=== PATIENT | male | born 1965 | race Caucasian/White ===

== ENCOUNTER 2017-03-27 10:40 | Inpatient (IN) | payer OTHER ==
[2017-03-27 11:07] VITALS: BMI 24.1
--- NOTE | 2017-03-27 14:07 | HP ---
CIWA Score - CIWA Score Nausea/Vomitin-No Nausea/No Vomiting Muscle Tremors: 3 Anxiety: 4-Mod. Anxious/Guarded Agitation: 4-Moderately Restless Paroxysmal Sweats: 1-Minimal Palms Moist Orientation: 0-Oriented Tacttile Disturbances: 3-Moderate Itch/Numb/Burn Auditory Disturbances: 0-None Visual Disturbances: 0-None Headache: 2-Mild CIWA-Ar Total Score: 17 Admission ROS BHS - HPI Chief Complaint: WITHDRAWAL SX FROM ALCOHOL Allergies/Adverse Reactions: Allergies Allergy/AdvReac Type Severity Reaction Status Date / Time No Known Allergies Allergy Verified 03/27/17 12:21 History of Present Illness: 51 Y/O H/MALE WITH A HX OF ALCOHOL DEPENDENCE ON [facility] MMTP, 40 MG PO DAILY SEEKING DETOX TX. LAST DOSED TODAY. Exam Limitations: No Limitations - Ebola screening Have you traveled outside of the country in the last 21 days: No Have you had contact with anyone from an Ebola affected area: No Have you been sick,other than usual withdrawal symptoms: No - Review of Systems Constitutional: Changes in sleep (ON AMBIEN) EENT: reports: Nose Congestion, Dental Problems (MISSING TEETH) Respiratory: reports: Shortness of Breath (HX ASTHMA/COPD), Wheezing Cardiac: reports: Lightheadedness, Chest Tightness (DUE TO ASTHMA) GI: reports: Constipated (OIC), Diarrhea, Nausea : reports: No Symptoms Reported Musculoskeletal: reports: Back Pain, Joint Pain, Muscle Pain, Other (HX RA ARTHRITIS) Integumentary: reports: No Symptoms Reported Neuro: reports: Headache, Dizziness Endocrine: reports: No Symptoms Reported Hematology: reports: No Symptoms Reported Psychiatric: reports: Orientated x3, Anxious, Depressed Other Systems: Reviewed and Negative Patient History - Patient Medical History Hx Asthma: Yes (Pt is on MDI) Hx Chronic Obstructive Pulmonary Disease (COPD): Yes Hx Cardiac Disorders: No Hx Hypertension: No Hx Hypercholesterolemia: No HX Cerebrovascular Accident: No Hx Seizures: No Hx Diabetes: No Hx Gastrointestinal Disorders: No Hx Genitourinary Disorders: No Hx Sexually Transmitted Disorders: No Hx Renal Disease (ESRD): No Hx Human Immunodeficiency Virus (HIV): No (NEGATIVE HX) Hx Hepatitis C: No Hx Depression: Yes Hx Suicide Attempt: No Hx Schizophrenia: No - Patient Surgical History Past Surgical History: No Hx Neurologic Surgery: No Hx Cataract Extraction: No Hx Cardiac Surgery: No Hx Lung Surgery: No Hx Breast Surgery: No Hx Breast Biopsy: No Hx Abdominal Surgery: No Hx Appendectomy: No Hx Cholecystectomy: No Hx Genitourinary Surgery: No Hx Orthopedic Surgery: No Anesthesia Reaction: No - PPD History Previous Implant?: Yes Documented Results: Negative w/o proof Implanted On Prior [facility] Admission?: No PPD to be Administered?: Yes - Reproductive History Patient is a Female of Child Bearing Age (11 -55 yrs old): No (MALE) - Smoking Cessation Smoking history: Former smoker Have you smoked in the past 12 months: No If you are a former smoker, when did you quit?: 2000 Hx Chewing Tobacco Use: No Initiated information on smoking cessation: No - Substance & Tx. History Hx Alcohol Use: Yes (BEER/COGNAC) Hx Substance Use: Yes (HEROIN ON/OFF) Hx Substance Use Treatment: Yes ([facility]) - Substances Abused Alcohol Route: Oral Frequency: Daily Amount used: 1-2 6pks beer/ 1 pint ofcognac Age of first use: 16 Date of Last Use: 03/27/17 Heroin Route: Inhalation Frequency: 1-2 times per week Amount used: 1 bag Age of first use: 16 Date of Last Use: 03/25/17 Family Disease History - Family Disease History Family History: Denies Admission Physical Exam [facility] - Vital Signs Vital Signs: Vital Signs - 24 hr 03/27/17 11:05 Temperature 97.5 F L Pulse Rate 67 Respiratory 18 Rate Blood Pressure 131/85 - Physical General Appearance: Yes: Moderate Distress, Irritable, Anxious HEENTM: Yes: EOMI, Normocephalic, NICOLE, Pharynx Normal Respiratory: Yes: Chest Non-Tender, No Respiratory Distress, Wheezing Neck: Yes: No masses,lesions,Nodules, Supple, Trachea in good position Breast: Yes: Breast Exam Deferred Cardiology: Yes: Regular Rhythm, Regular Rate, S1, S2 Abdominal: Yes: Normal Bowel Sounds, Non Tender, Flat, Soft Genitourinary: Yes: Other (N/C) Back: Yes: Normal Inspection Musculoskeletal: Yes: full range of Motion, Gait Steady Extremities: Yes: Normal Range of Motion, Non-Tender Neurological: Yes: auto design checker II-XII NML intact, Fully Oriented, Alert, Motor Strength 5/5 Integumentary: Yes: Dry, Warm Lymphatic: Yes: Within Normal Limits - Diagnostic (1) Alcohol dependence with uncomplicated withdrawal Current Visit: Yes Status: Acute (2) Methadone maintenance therapy patient Current Visit: Yes Status: Chronic (3) Asthma Current Visit: Yes Status: Acute Qualifiers: Asthma severity: moderate Asthma persistence: unspecified Asthma complication type: with acute exacerbation Qualified Code(s): J45.901 - Unspecified asthma with (acute) exacerbation (4) History of COPD Current Visit: Yes Status: Chronic Cleared for Admission [facility] - Detox or Rehab [facility] Level of Care: Medically Managed Detox Regimen/Protocol: Librium [facility] Breath Alcohol Content Breath Alcohol Content: 0 Urine Drug Screen - Results Drug Screen Negative: No Urine Drug Screen Results: OPI-Opiates, MTD-Methadone, OXY-Oxycodone
[2017-03-27] MEDS ORDERED: MAGNESIUM CITRATE 300 ML BOTTLE PO PRN (14:16)
[2017-03-27] MEDS ORDERED: IBUPROFEN 400 MG TABLET (FP) PO PRN (14:16)
[2017-03-27] MEDS ORDERED: LOPERAMIDE HCL 2 MG CAPSULE PO PRN (14:16)
[2017-03-27] MEDS ORDERED: chlordiazePOXIDE HCL 25 MG CAPSULE PO PRN (14:16)
[2017-03-27] MEDS ORDERED: ACETAMINOPHEN 325 MG TABLET (FP) PO PRN (14:16)
[2017-03-27] MEDS ORDERED: hydrOXYzine PAMOATE 50 MG CAPSULE (FP) PO PRN (14:16)
[2017-03-27] MEDS ORDERED: MAG HYDROX/AL HYDROX/SIMETH 30 ML UNIT-DOSE CUP PO PRN (14:16)
[2017-03-27] MEDS ORDERED: MENTHOL/PHENOL 1 EACH UD MM PRN (14:16)
[2017-03-27] MEDS ORDERED: MAGNESIUM HYDROX 2400MG/30ML ORAL SUSPENSION 30 ML CUP PO PRN (14:16)
[2017-03-27] MEDS ORDERED: P-EPHED 60MG/TRIPROLIDI 2.5MG TABLET PO PRN (14:16)
[2017-03-27] MEDS ORDERED: guaiFENesin/D-METHORPHAN HB 10 ML UNIT-DOSE CUPS PO PRN (14:16)
[2017-03-27] MEDS ORDERED: ALBUTEROL SO4 18 GM HFA INHALER IH PRN (14:18)
[2017-03-27] MEDS ORDERED: ALBUTEROL SO4 2.5/IPRATROPIUM 0.5 INH SOL 3 ML VIAL.NEB. NEB PRN (14:20)
[2017-03-27] MEDS ORDERED: chlordiazePOXIDE HCL 25 MG CAPSULE PO ONE (15:04)
--- NOTE | 2017-03-27 15:13 | CONSULT ---
[facility] Psychiatric Consult - Data Date of interview: 03/27/17 Admission source: [facility] Identifying data: First admission to [facility] for this 51 y/o [place] male seeking detox treatment on for alcohol and heroin dependence.Patent is single without children,domiciled,unemployed and supported on welfare benefits. Substance Abuse History: Confirmed by patient in this session.Refer to current [facility] report for details : Smoking history: Former smoker. Have you smoked in the past 12 months: No. If you are a former smoker, when did you quit?: 2000. Hx Chewing Tobacco Use: No. Initiated information on smoking cessation: No. - Substance & Tx. History. Hx Alcohol Use: Yes (BEER/COGNAC). Hx Substance Use: Yes (HEROIN ON/OFF). Hx Substance Use Treatment: Yes ([facility]). - Substances Abused. Alcohol. Route: Oral. Frequency: Daily. Amount used: 1-2 6pks beer/ 1 pint ofcognac. Age of first use: 16. Date of Last Use: 03/27/17. Heroin. Route: Inhalation. Frequency: 1-2 times per week. Amount used: 1 bag. Age of first use: 16. Date of Last Use: 03/25/17 Medical History: COPD,bronchial asthma and rheumatoid arthritis. Psychiatric History: No reported history of psychiatric hospitalizations.Patient endorses the diagnoses of MDD and Anxiety Disorder.Mr Welch sees a psychiatrist,Dr Margo Giordano,at the [facility] in the [place].Maintained on celexa 20 mg/day + zolpidem 10 mg/hs (confirmed by pharmacy claims of 03/03/17 at [facility]).Currently on methadone meintenece ( 40 mg/day) at the [facility].Patient denies history of suicide attempts. Physical/Sexual Abuse/Trauma History: Patient denies history of abuse. Additional Comment: Urine Drug Screen Results: OPI-Opiates, MTD-Methadone, OXY- Oxycodone.Noted. Mental Status Exam - Mental Status Exam Alert and Oriented to: Time, Place, Person Cognitive Function: Good Patient Appearance: Well Groomed Mood: Hopeful, Euthymic Affect: Appropriate, Normal Range Patient Behavior: Fatigued, Cooperative Speech Pattern: Clear, Appropriate Voice Loudness: Normal Thought Process: Intact, Goal Oriented Thought Disorder: Not Present Hallucinations: Denies Suicidal Ideation: Denies Homicidal Ideation: Denies Insight/Judgement: Fair Sleep: Poorly, Difficulty falling asleep Appetite: Good Muscle strength/Tone: Normal Gait/Station: Normal Psychiatric Findings - Problem List ([place] 1, 2,3) (1) Alcohol dependence with uncomplicated withdrawal Current Visit: Yes Status: Acute (2) Opioid dependence on agonist therapy Current Visit: Yes Status: Acute (3) MDD (major depressive disorder) Current Visit: Yes Status: Chronic Comment: As per self-report.On medications.Connected with psychiatric OPD care at the [facility] in [facility]. (4) Insomnia Current Visit: Yes Status: Acute - Initial Treatment Plan Initial Treatment Plan: Psychoeducation and support provided in this session.Detoxification in progress.Sleep hygiene discussed.Medications resumed : celexa 20 mg po daily + ambien 5 mg po hs prn.Side effects/benefits of both drugs are discussed with the patient.Made aware,in particular,of risk for suicidal ideation,sexual dysfunction and parasomnias (sleep-walking).Patient endorses a history of favorable response to his medications.Consent (verbal) given for implementation of this careplan.Observation.
[2017-03-27] MEDS: chlordiazePOXIDE HCL 25 MG CAPSULE PO SCH ×2 (17:34→22:33)
[2017-03-27] MEDS: ALBUTEROL SO4 2.5/IPRATROPIUM 0.5 INH SOL 3 ML VIAL.NEB. NEB SCH ×2 (17:39→22:34)
[2017-03-27 19:54] LABS: HEMATOCRIT 39.5 % (35.4-49); MCH 29.6 pg (25.7-33.7); MCHC 32.9 g/dl (32.0-35.9); MEAN CELL VOLUME 89.9 fl (80-96); MEAN PLT VOLUME 6.9 fl (7.5-11.1); PLATELET COUNT 267 K/MM3 (134-434); RBC 4.39 M/mm3 (4.00-5.60); RDW 13.4 % (11.9-15.9); WHITE BLOOD COUNT 7.4 K/mm3 (4.0-10.0)
[2017-03-27 19:57] LABS: ALBUMIN 3.8 g/dl (3.4-5.0); ANION GAP 5 (8-16); BLOOD UREA NITROGEN 14 mg/dL (7-18); CALCIUM 8.2 mg/dL (8.5-10.1); CHLORIDE 103 mmol/L (98-107); CO2 32 mmol/L (21-32); GLUCOSE,RANDOM 116 mg/dL (74-106); POTASSIUM 4.6 mmol/L (3.5-5.1); SGOT/AST 23 U/L (15-37); SODIUM 140 mmol/L (136-145)
[2017-03-27 20:00] LABS: ALK PHOS 85 U/L (45-117); BILIRUBIN,TOTAL 0.8 mg/dL (0.2-1.0); CREATININE 0.9 mg/dL (0.7-1.3); SGPT/ALT 19 U/L (12-78); TOT PROT 7.8 g/dl (6.4-8.2)
[2017-03-27 20:04] LABS: URINE APPEARANCE CLEAR; URINE BILIRUBIN NEGATIVE (NEGATIVE); URINE BLOOD NEGATIVE (NEGATIVE); URINE COLOR YELLOW; URINE GLUCOSE (UA) NEGATIVE (NEGATIVE); URINE KETONE NEGATIVE (NEGATIVE); URINE LEUK ESTERASE NEGATIVE (NEGATIVE); URINE NITRITE NEGATIVE (NEGATIVE); URINE PROTEIN NEGATIVE (NEGATIVE); URINE UROBILINOGEN NEGATIVE mg/dL (0.2-1.0)
[2017-03-27 20:28] LABS: SICKLE CELL SCREEN NEGATIVE (NEGATIVE)
[2017-03-27] MEDS: THIAMINE HCL 100 MG TABLET (FP) PO SCH (22:34)
[2017-03-27] MEDS: BUDESONIDE/FORMETEROL FUMARATE 80/4.5 mcg INHALER IH SCH (22:34)
[2017-03-27] MEDS: ZOLPIDEM TARTRATE 5 MG TABLET PO PRN (22:35)
[2017-03-28] MEDS: chlordiazePOXIDE HCL 25 MG CAPSULE PO SCH ×4 (05:55→22:31)
[2017-03-28] MEDS: METHADONE HCL 40 MG DISPERSABLE TABLET PO SCH (07:44)
[2017-03-28] MEDS: ALBUTEROL SO4 2.5/IPRATROPIUM 0.5 INH SOL 3 ML VIAL.NEB. NEB SCH ×4 (08:45→22:31)
[2017-03-28] MEDS: PRENATAL VITAMINS W/ FOLIC ACID TABLET (FP) PO SCH (10:22)
[2017-03-28] MEDS: BUDESONIDE/FORMETEROL FUMARATE 80/4.5 mcg INHALER IH SCH ×2 (10:22→22:31)
[2017-03-28] MEDS: CITALOPRAM HYDROBROMIDE 20 MG TABLET (FP) PO SCH (10:22)
--- NOTE | 2017-03-28 12:29 | EKG ---
Test Reason : Blood Pressure : / mmHG Vent. Rate : 070 BPM Atrial Rate : 070 BPM P-R Int : 122 ms QRS Dur : 082 ms QT Int : 396 ms P-R-T Axes : 074 075 066 degrees QTc Int : 427 ms NORMAL SINUS RHYTHM NORMAL ECG NO PREVIOUS ECGS AVAILABLE Confirmed by MD KARMEN, PATTI ([id number]) on 03/28/2017 12:28:38 PM Referred By: Confirmed By:PATTI PERAZA MD
--- NOTE | 2017-03-28 15:36 | PN ---
[facility] CIWA - CIWA Score Nausea/Vomitin-No Nausea/No Vomiting Muscle Tremors: 3 Anxiety: 4-Mod. Anxious/Guarded Agitation: 2 Paroxysmal Sweats: 3 Orientation: 0-Oriented Tacttile Disturbances: 0-None Auditory Disturbances: 1-Very Mild Visual Disturbances: 3-Moderate Sensitivity Headache: 0-None Present CIWA-Ar Total Score: 16 BHS Progress Note (SOAP) Subjective: Tremors, Anxious, Body Aches, Fatigue, Body Aches, Sweating. Objective: PT. A & O X 3, OBSERVED AMBULATING ON UNIT. NO ACUTE DISTRESS. 03/28/17 15:35 Vital Signs Temperature 96 F L 03/28/17 13:11 Pulse Rate 78 03/28/17 13:11 Respiratory Rate 18 03/28/17 13:11 Blood Pressure 114/79 03/28/17 13:11 O2 Sat by Pulse Oximetry (%) Laboratory Tests 03/27/17 03/27/17 03/27/17 12:40 15:00 15:00 WBC 7.4 RBC 4.39 Hgb 13.0 Hct 39.5 MCV 89.9 MCH 29.6 MCHC 32.9 RDW 13.4 Plt Count 267 MPV 6.9 L Sickle Cell Screen Negative Sodium 140 Potassium 4.6 Chloride 103 Carbon Dioxide 32 Anion Gap 5 L BUN 14 Creatinine 0.9 Creat Clearance w eGFR > 60 Random Glucose 116 H Calcium 8.2 L Total Bilirubin 0.8 AST 23 ALT 19 Alkaline Phosphatase 85 Total Protein 7.8 Albumin 3.8 Urine Color Urine Appearance Urine pH Ur Specific [place] Urine Protein Urine Glucose (UA) Urine Ketones Urine Blood Urine Nitrite Urine Bilirubin Urine Urobilinogen Ur Leukocyte Esterase RPR Titer HIV 1&2 Antibody Screen Negative HIV P24 Antigen Negative 03/27/17 03/27/17 15:00 15:50 WBC RBC Hgb Hct MCV MCH MCHC RDW Plt Count MPV Sickle Cell Screen Sodium Potassium Chloride Carbon Dioxide Anion Gap BUN Creatinine Creat Clearance w eGFR Random Glucose Calcium Total Bilirubin AST ALT Alkaline Phosphatase Total Protein Albumin Urine Color Yellow Urine Appearance Clear Urine pH 6.0 Ur Specific [place] 1.025 Urine Protein Negative Urine Glucose (UA) Negative Urine Ketones Negative Urine Blood Negative Urine Nitrite Negative Urine Bilirubin Negative Urine Urobilinogen Negative Ur Leukocyte Esterase Negative RPR Titer Nonreactive HIV 1&2 Antibody Screen HIV P24 Antigen LABS NOTED. Assessment: 03/28/17 15:35 WITHDRAWAL SYMPTOMS. Plan: CONTINUE DETOX.
[2017-03-28] MEDS: THIAMINE HCL 100 MG TABLET (FP) PO SCH (22:31)
[2017-03-28] MEDS: ZOLPIDEM TARTRATE 5 MG TABLET PO PRN (22:31)
[2017-03-29] MEDS: chlordiazePOXIDE HCL 25 MG CAPSULE PO SCH ×2 (05:27→10:24)
[2017-03-29] MEDS: METHADONE HCL 40 MG DISPERSABLE TABLET PO SCH (05:27)
[2017-03-29] MEDS: ALBUTEROL SO4 2.5/IPRATROPIUM 0.5 INH SOL 3 ML VIAL.NEB. NEB SCH ×4 (08:25→20:30)
[2017-03-29] MEDS: BUDESONIDE/FORMETEROL FUMARATE 80/4.5 mcg INHALER IH SCH ×2 (10:23→22:38)
[2017-03-29] MEDS: PRENATAL VITAMINS W/ FOLIC ACID TABLET (FP) PO SCH (10:23)
[2017-03-29] MEDS: CITALOPRAM HYDROBROMIDE 20 MG TABLET (FP) PO SCH (10:23)
--- NOTE | 2017-03-29 13:16 | PN ---
S CIWA - CIWA Score Nausea/Vomitin-Int. Nausea w/Dry Heave Muscle Tremors: 2 Anxiety: 3 Agitation: 3 Paroxysmal Sweats: 3 Orientation: 0-Oriented Tacttile Disturbances: 0-None Auditory Disturbances: 0-None Visual Disturbances: 0-None Headache: 3-Moderate CIWA-Ar Total Score: 18 BHS Progress Note (SOAP) Subjective: Chills, sweating, interrupted sleep, headache, nausea Objective: 03/29/17 13:14 Last Vital Signs Temp Pulse Resp BP Pulse Ox 98.4 F 62 20 109/77 03/29/17 09:52 03/29/17 09:52 03/29/17 09:52 03/29/17 09:52 Laboratory Tests 03/27/17 03/27/17 03/27/17 12:40 15:00 15:00 WBC 7.4 RBC 4.39 Hgb 13.0 Hct 39.5 MCV 89.9 MCH 29.6 MCHC 32.9 RDW 13.4 Plt Count 267 MPV 6.9 L Sickle Cell Screen Negative Sodium 140 Potassium 4.6 Chloride 103 Carbon Dioxide 32 Anion Gap 5 L BUN 14 Creatinine 0.9 Creat Clearance w eGFR > 60 Random Glucose 116 H Calcium 8.2 L Total Bilirubin 0.8 AST 23 ALT 19 Alkaline Phosphatase 85 Total Protein 7.8 Albumin 3.8 Urine Color Urine Appearance Urine pH Ur Specific [place] Urine Protein Urine Glucose (UA) Urine Ketones Urine Blood Urine Nitrite Urine Bilirubin Urine Urobilinogen Ur Leukocyte Esterase RPR Titer HIV 1&2 Antibody Screen Negative HIV P24 Antigen Negative 03/27/17 03/27/17 15:00 15:50 WBC RBC Hgb Hct MCV MCH MCHC RDW Plt Count MPV Sickle Cell Screen Sodium Potassium Chloride Carbon Dioxide Anion Gap BUN Creatinine Creat Clearance w eGFR Random Glucose Calcium Total Bilirubin AST ALT Alkaline Phosphatase Total Protein Albumin Urine Color Yellow Urine Appearance Clear Urine pH 6.0 Ur Specific [place] 1.025 Urine Protein Negative Urine Glucose (UA) Negative Urine Ketones Negative Urine Blood Negative Urine Nitrite Negative Urine Bilirubin Negative Urine Urobilinogen Negative Ur Leukocyte Esterase Negative RPR Titer Nonreactive HIV 1&2 Antibody Screen HIV P24 Antigen Labs noted Assessment: 03/29/17 13:15 Withdrawal symptoms Plan: Continue detox
[2017-03-29] MEDS: chlordiazePOXIDE 5 MG CAPSULE PO SCH ×2 (17:43→22:38)
[2017-03-29] MEDS: THIAMINE HCL 100 MG TABLET (FP) PO SCH (22:38)
[2017-03-29] MEDS: ZOLPIDEM TARTRATE 5 MG TABLET PO PRN (23:10)
[2017-03-30] MEDS: METHADONE HCL 40 MG DISPERSABLE TABLET PO SCH (05:26)
[2017-03-30] MEDS: chlordiazePOXIDE 5 MG CAPSULE PO SCH ×2 (05:26→10:37)
[2017-03-30] MEDS: ALBUTEROL SO4 2.5/IPRATROPIUM 0.5 INH SOL 3 ML VIAL.NEB. NEB SCH ×4 (08:05→21:52)
[2017-03-30] MEDS: BUDESONIDE/FORMETEROL FUMARATE 80/4.5 mcg INHALER IH SCH ×2 (10:35→22:27)
[2017-03-30] MEDS: PRENATAL VITAMINS W/ FOLIC ACID TABLET (FP) PO SCH (10:36)
[2017-03-30] MEDS: CITALOPRAM HYDROBROMIDE 20 MG TABLET (FP) PO SCH (10:36)
--- NOTE | 2017-03-30 11:03 | PN ---
BHS Progress Note (SOAP) Subjective: BACK PAIN, ANXIETY, INTERMITTENT SLEEP. Objective: 03/30/17 11:02 Vital Signs Temperature 96.3 F L 03/30/17 09:10 Pulse Rate 62 03/30/17 09:10 Respiratory Rate 18 03/30/17 09:10 Blood Pressure 114/71 03/30/17 09:10 O2 Sat by Pulse Oximetry (%) Laboratory Last Values WBC 7.4 K/mm3 (4.0-10.0) 03/27/17 15:00 RBC 4.39 M/mm3 (4.00-5.60) 03/27/17 15:00 Hgb 13.0 GM/dL (11.7-16.9) 03/27/17 15:00 Hct 39.5 % (35.4-49) 03/27/17 15:00 MCV 89.9 fl (80-96) 03/27/17 15:00 MCH 29.6 pg (25.7-33.7) 03/27/17 15:00 MCHC 32.9 g/dl (32.0-35.9) 03/27/17 15:00 RDW 13.4 % (11.9-15.9) 03/27/17 15:00 Plt Count 267 K/MM3 (134-434) 03/27/17 15:00 MPV 6.9 fl (7.5-11.1) L 03/27/17 15:00 Sickle Cell Screen Negative (NEGATIVE) 03/27/17 15:00 Sodium 140 mmol/L (136-145) 03/27/17 15:00 Potassium 4.6 mmol/L (3.5-5.1) 03/27/17 15:00 Chloride 103 mmol/L (98-107) 03/27/17 15:00 Carbon Dioxide 32 mmol/L (21-32) 03/27/17 15:00 Anion Gap 5 (8-16) L 03/27/17 15:00 BUN 14 mg/dL (7-18) 03/27/17 15:00 Creatinine 0.9 mg/dL (0.7-1.3) 03/27/17 15:00 Creat Clearance w eGFR > 60 (>60) 03/27/17 15:00 Random Glucose 116 mg/dL (74-106) H 03/27/17 15:00 Calcium 8.2 mg/dL (8.5-10.1) L 03/27/17 15:00 Total Bilirubin 0.8 mg/dL (0.2-1.0) 03/27/17 15:00 AST 23 U/L (15-37) 03/27/17 15:00 ALT 19 U/L (12-78) 03/27/17 15:00 Alkaline Phosphatase 85 U/L (45-117) 03/27/17 15:00 Total Protein 7.8 g/dl (6.4-8.2) 03/27/17 15:00 Albumin 3.8 g/dl (3.4-5.0) 03/27/17 15:00 Urine Color Yellow 03/27/17 15:50 Urine Appearance Clear 03/27/17 15:50 Urine pH 6.0 (5.0-8.0) 03/27/17 15:50 Ur Specific [place] 1.025 (1.001-1.035) 03/27/17 15:50 Urine Protein Negative (NEGATIVE) 03/27/17 15:50 Urine Glucose (UA) Negative (NEGATIVE) 03/27/17 15:50 Urine Ketones Negative (NEGATIVE) 03/27/17 15:50 Urine Blood Negative (NEGATIVE) 03/27/17 15:50 Urine Nitrite Negative (NEGATIVE) 03/27/17 15:50 Urine Bilirubin Negative (NEGATIVE) 03/27/17 15:50 Urine Urobilinogen Negative mg/dL (0.2-1.0) 03/27/17 15:50 Ur Leukocyte Esterase Negative (NEGATIVE) 03/27/17 15:50 RPR Titer Nonreactive (NONREACTIVE) 03/27/17 15:00 HIV 1&2 Antibody Screen Negative 03/27/17 12:40 HIV P24 Antigen Negative 03/27/17 12:40 Assessment: 03/30/17 11:02 WITHDRAWAL SX Plan: CONTINUE DETOX LIDOCAINE PATCH DIRECTED.
[2017-03-30] MEDS: LIDOCAINE 5% TOPICAL PATCH TP SCH (11:45)
[2017-03-30] MEDS: chlordiazePOXIDE HCL 10 MG CAPSULE PO SCH ×2 (17:22→22:28)
[2017-03-30] MEDS ORDERED: LIDOCAINE PATCH REMOVAL MC SCH (22:00)
[2017-03-30] MEDS: THIAMINE HCL 100 MG TABLET (FP) PO SCH (22:27)
[2017-03-30] MEDS: ZOLPIDEM TARTRATE 5 MG TABLET PO PRN (22:30)
[2017-03-31] MEDS: chlordiazePOXIDE HCL 10 MG CAPSULE PO SCH (05:47)
[2017-03-31] MEDS: METHADONE HCL 40 MG DISPERSABLE TABLET PO SCH (05:47)
[2017-03-31 09:11] VITALS: BP 115/70; PULSE 60; TEMP 96.6
[2017-03-31] MEDS: BUDESONIDE/FORMETEROL FUMARATE 80/4.5 mcg INHALER IH SCH (10:14)
[2017-03-31] MEDS: CITALOPRAM HYDROBROMIDE 20 MG TABLET (FP) PO SCH (10:14)
[2017-03-31] MEDS: PRENATAL VITAMINS W/ FOLIC ACID TABLET (FP) PO SCH (10:14)
[2017-03-31] MEDS: LIDOCAINE 5% TOPICAL PATCH TP SCH (10:14)
[2017-03-31] MEDS: ALBUTEROL SO4 2.5/IPRATROPIUM 0.5 INH SOL 3 ML VIAL.NEB. NEB SCH (10:15)
--- NOTE | 2017-03-31 11:17 | DS ---
[facility] Detox Discharge Summary Admission Date: 03/27/17 Discharge Date: 03/31/17 - History Present History: Alcohol Dependence, MMTP Additional Comments: DETOX COMPLETED. ALERT O X 3. NAD. Pertinent Past History: SEE DX BELOW - Physical Exam Results Vital Signs: Vital Signs Temperature 96.6 F L 03/31/17 09:11 Pulse Rate 60 03/31/17 09:11 Respiratory Rate 18 03/31/17 09:11 Blood Pressure 115/70 03/31/17 09:11 O2 Sat by Pulse Oximetry (%) Pertinent Admission Physical Exam Findings: WITHDRAWAL SX Laboratory Last Values WBC 7.4 K/mm3 (4.0-10.0) 03/27/17 15:00 RBC 4.39 M/mm3 (4.00-5.60) 03/27/17 15:00 Hgb 13.0 GM/dL (11.7-16.9) 03/27/17 15:00 Hct 39.5 % (35.4-49) 03/27/17 15:00 MCV 89.9 fl (80-96) 03/27/17 15:00 MCH 29.6 pg (25.7-33.7) 03/27/17 15:00 MCHC 32.9 g/dl (32.0-35.9) 03/27/17 15:00 RDW 13.4 % (11.9-15.9) 03/27/17 15:00 Plt Count 267 K/MM3 (134-434) 03/27/17 15:00 MPV 6.9 fl (7.5-11.1) L 03/27/17 15:00 Sickle Cell Screen Negative (NEGATIVE) 03/27/17 15:00 Sodium 140 mmol/L (136-145) 03/27/17 15:00 Potassium 4.6 mmol/L (3.5-5.1) 03/27/17 15:00 Chloride 103 mmol/L (98-107) 03/27/17 15:00 Carbon Dioxide 32 mmol/L (21-32) 03/27/17 15:00 Anion Gap 5 (8-16) L 03/27/17 15:00 BUN 14 mg/dL (7-18) 03/27/17 15:00 Creatinine 0.9 mg/dL (0.7-1.3) 03/27/17 15:00 Creat Clearance w eGFR > 60 (>60) 03/27/17 15:00 Random Glucose 116 mg/dL (74-106) H 03/27/17 15:00 Calcium 8.2 mg/dL (8.5-10.1) L 03/27/17 15:00 Total Bilirubin 0.8 mg/dL (0.2-1.0) 03/27/17 15:00 AST 23 U/L (15-37) 03/27/17 15:00 ALT 19 U/L (12-78) 03/27/17 15:00 Alkaline Phosphatase 85 U/L (45-117) 03/27/17 15:00 Total Protein 7.8 g/dl (6.4-8.2) 03/27/17 15:00 Albumin 3.8 g/dl (3.4-5.0) 03/27/17 15:00 Urine Color Yellow 03/27/17 15:50 Urine Appearance Clear 03/27/17 15:50 Urine pH 6.0 (5.0-8.0) 03/27/17 15:50 Ur Specific [place] 1.025 (1.001-1.035) 03/27/17 15:50 Urine Protein Negative (NEGATIVE) 03/27/17 15:50 Urine Glucose (UA) Negative (NEGATIVE) 03/27/17 15:50 Urine Ketones Negative (NEGATIVE) 03/27/17 15:50 Urine Blood Negative (NEGATIVE) 03/27/17 15:50 Urine Nitrite Negative (NEGATIVE) 03/27/17 15:50 Urine Bilirubin Negative (NEGATIVE) 03/27/17 15:50 Urine Urobilinogen Negative mg/dL (0.2-1.0) 03/27/17 15:50 Ur Leukocyte Esterase Negative (NEGATIVE) 03/27/17 15:50 RPR Titer Nonreactive (NONREACTIVE) 03/27/17 15:00 HIV 1&2 Antibody Screen Negative 03/27/17 12:40 HIV P24 Antigen Negative 03/27/17 12:40 - Treatment Hospital Course: Detox Protocol Followed, Detoxed Safely, Responded well, Discharged Condition Good, Rehab Referral Accepted ([facility]) Patient has Accepted a Rehab Referral to: [facility] - Medication Discharge Medications: Ambulatory Orders Albuterol Sulfate Inhaler - [Ventolin Hfa Inhaler -] 2 inh PO Q4H PRN 03/27/17 Budesonide/Formeterol Fumarate [SYMBICORT 80/4.5mcg -] 1 inh PO BID 03/27/17 Citalopram Hydrobromide [Celexa -] 20 mg PO DAILY #30 tablet 03/27/17 Zolpidem Tartrate [Ambien] 10 mg PO HS 03/27/17 - Diagnosis (1) Alcohol dependence with uncomplicated withdrawal Current Visit: Yes Status: Acute (2) Methadone maintenance therapy patient Current Visit: Yes Status: Chronic (3) Asthma Current Visit: Yes Status: Chronic Qualifiers: Asthma severity: moderate Asthma persistence: unspecified Asthma complication type: with acute exacerbation Qualified Code(s): J45.901 - Unspecified asthma with (acute) exacerbation (4) History of COPD Current Visit: Yes Status: Chronic - AMA Did Patient Leave Against Medical Advice: No
== END 2017-03-31 10:45 | disposition home or self-care (01) | DRG 773 ==
LOC: YASAS 10:40 → Y3N 14:27
PROVIDERS: ADMIT Internal Medicine; ATTEND Internal Medicine
PROC: HZ2ZZZZ Detoxification Services for Substance Abuse Treatment (ICD-10-PCS; principal; 2017-03-27)
DX: F11.20 Opioid dependence, uncomplicated (principal); F10.230 Alcohol dependence with withdrawal, uncomplicated; F33.9 Major depressive disorder, recurrent, unspecified; G47.00 Insomnia, unspecified; J45.901 Unspecified asthma with (acute) exacerbation; J44.9 Chronic obstructive pulmonary disease, unspecified
CPT/HCPCS: 36415; 80053; 81003; 85027; 85660; 86593; 87389; 93005; 93010; 94640